=== PATIENT | female | born 1995 | race Caucasian/White ===

== ENCOUNTER 2016-05-23 15:32 | Emergency (ER) | payer OTHER ==
--- NOTE | 2016-05-23 15:56 | ED.PDOC ---
History of Present Illness - General Chief Complaint: Upper Extremity Injury Stated Complaint: Right elbow pain Time Seen by Provider: 05/23/16 15:41 Source: patient, RN notes reviewed, Vital Signs reviewed Exam Limitations: no limitations - History of Present Illness Initial Comments: Patient reports she was horsing around with her and hyperextended her right elbow. She heard/felt a pop and now the inner aspect of her elbow and forearm are painful. Reports numbness in her fingers,all. Occurred: just prior to arrival Pain - Upper Extremity: moderate: Elbow, right Method of Injury: other - hyperextended Improving Factors: immobilization Worsening Factors: movement Allergies/Adverse Reactions: Allergies NO KNOWN ALLERGY Allergy (Unverified 11/02/12 02:29) Home Medications: Ambulatory Orders Cyclobenzaprine HCl [Flexeril] 10 mg PO TID 08/24/15 Review of Systems - Review of Systems Constitutional: States: no symptoms reported EENTM: States: no symptoms reported Respiratory: States: no symptoms reported Cardiology: States: no symptoms reported Gastrointestinal/Abdominal: States: no symptoms reported Musculoskeletal: States: see HPI, joint pain - right elbow Skin: States: no symptoms reported Neurological: States: numbness, paresthesia. Denies: tingling, weakness Endocrine: States: no symptoms reported Past Medical History (General) - Patient Medical History Hx Cardiac Disorders: Yes - tachycardia, heart murmur Hx Diabetes: No Hx Renal Disease: No Hx MRSA: Yes - Finger 2012 MRSA Source:: Wound Surgical History: cholecystectomy - Vaccination History Hx Tetanus, Diphtheria Vaccination: No Hx Influenza Vaccination: No Hx Pneumococcal Vaccination: No - Social History Hx Tobacco Use: Yes Hx Chewing Tobacco Use: No Hx Substance Use: No Hx Physical Abuse: No Hx Emotional Abuse: No Hx Suspected Abuse: No - Female History Patient is a Female of Child Bearing Age (10 -59 yrs old): Yes Hx Last Menstrual Period: 04/04/13 Patient : - unknown-had 4 positive tests at home today Expected Date of Delivery:: 01/20/14 Family Medical History - Family History Mother Name: Bella Spence Living Status: Age at (years of age): 43 Cause of : Lupus Father Age (years): 42 Living Status: Still Living Physical Exam - Physical Exam General Appearance: Alert, Comfortable, No apparent distress, Well Developed, Well Groomed, Well Hydrated, Well Nourished Cardiovascular/Respiratory: normal peripheral pulses Shoulder Exam: normal inspection, non-tender, no evidence of injury, normal ROM Elbow/Forearm Exam: bone tenderness - Right inner aspect, limited ROM - due to pain, pain, soft tissue tenderness - right elbow Wrist Exam: normal inspection, non-tender, no evidence of injury, normal ROM Hand Exam: normal inspection, non-tender, no evidence of injury, normal ROM Neuro/Tendon: normal motor functions, normal tendon functions, sensory deficit - Reports all her fingers are numb to light touch Mental Status: alert, oriented x 3 Skin Exam: normal color, warm/dry Progress - EKG/XRAY/CT XRAY: elbow - Normal Departure - Departure Clinical Impression: Sprain elbow/forearm Qualifiers: Encounter type: initial encounter Laterality: right Qualifier Code: (S53.401A) Unspecified sprain of right elbow, initial encounter Time of Disposition: 16:24 Disposition: Discharge to Home or Self Care Condition: Good Departure Forms: ED Discharge - Pt. Copy, Patient Portal Self Enrollment Diet: resume usual diet Activity: increase activity as tolerated Home Medications: Ambulatory Orders Cyclobenzaprine HCl [Flexeril] 10 mg PO TID 08/24/15 Additional Instructions: Wear sling for 3-5 days OTC Ibuprofen
[2016-05-23 16:10] VITALS: BP 116/74; TEMP 98.9
--- NOTE | 2016-05-23 16:14 | RAD ---
EXAM: Elbow,Right 3 Views CLINICAL INDICATION: 20-year-old female, hyperextended, heard a pop and now painful. TECHNIQUE: Three views of the RIGHT elbow were obtained in AP, lateral and oblique projections. COMPARISON: None. FINDINGS: There is no fracture or dislocation. The joint spaces are preserved. No soft tissue abnormalities are seen. IMPRESSION: No acute radiographic abnormality. Electronically signed by: Mckenzie Mercado MD 05/23/2016 4:13 PM CDT
[2016-05-23 16:51] VITALS: O2SAT 98
== END 2016-05-23 16:40 | disposition home or self-care (01) ==
LOC: ER 15:32
DX: S53.401A Unspecified sprain of right elbow, initial encounter (principal); R01.1 Cardiac murmur, unspecified; Z86.14 Personal history of Methicillin resistant Staphylococcus aureus infection; Z87.891 Personal history of nicotine dependence; Y93.83 Activity, rough housing and horseplay

== ENCOUNTER 2019-08-19 16:32 | Emergency (ER) | payer SELFPAY ==
[2019-08-19 16:55] VITALS: BP 110/72; TEMP 100.1; O2SAT 99
--- NOTE | 2019-08-19 17:08 | RAD ---
EXAM DESCRIPTION: Ankle,Left 2 Views (accession [id number]), Foot,Left 2 Views (accession [id number]), Tibia/Fibula,Left (accession [id number]) CLINICAL HISTORY: 24 years Female, lateral pain after fall yeterday COMPARISON: None. FINDINGS: Left ankle 2 views, left foot 2 views and left tibia-fibula 2 views No fracture or dislocation. Soft tissues are unremarkable. IMPRESSION: No acute abnormality. Electronically signed by: Luciano Savage MD 08/19/2019 5:07 PM CDT
--- NOTE | 2019-08-19 17:09 | RAD ---
EXAM DESCRIPTION: Ankle,Left 2 Views (accession [id number]), Foot,Left 2 Views (accession [id number]), Tibia/Fibula,Left (accession [id number]) CLINICAL HISTORY: 24 years Female, lateral pain after fall yeterday COMPARISON: None. FINDINGS: Left ankle 2 views, left foot 2 views and left tibia-fibula 2 views No fracture or dislocation. Soft tissues are unremarkable. IMPRESSION: No acute abnormality. Electronically signed by: Luciano Savage MD 08/19/2019 5:07 PM CDT
--- NOTE | 2019-08-19 17:09 | RAD ---
EXAM DESCRIPTION: Ankle,Left 2 Views (accession [id number]), Foot,Left 2 Views (accession [id number]), Tibia/Fibula,Left (accession [id number]) CLINICAL HISTORY: 24 years Female, lateral pain after fall yeterday COMPARISON: None. FINDINGS: Left ankle 2 views, left foot 2 views and left tibia-fibula 2 views No fracture or dislocation. Soft tissues are unremarkable. IMPRESSION: No acute abnormality. Electronically signed by: Luciano Savage MD 08/19/2019 5:07 PM CDT
--- NOTE | 2019-08-19 17:16 | ED.PDOC ---
History of Present Illness - General Chief Complaint: Lower Extremity Injury Stated Complaint: left ankle injury Time Seen by Provider: 08/19/19 16:44 Source: patient Exam Limitations: no limitations - History of Present Illness Initial Comments: The patient is a 24-year-old female presented emergency room secondary to [place] The patient has been ambulatory on it since. Pain is along the lateral aspect extending up to the lateral aspect of the knee down to the lateral aspect of the foot. No swelling. No deformity. No sensory changes. No loss of function. No deformity. No other injuries. No laceration. Timing/Duration: 24 hours Severity: moderate Improving Factors: immobilization Worsening Factors: movement Associated Symptoms: denies symptoms Allergies/Adverse Reactions: Allergies Codeine Allergy (Verified 08/19/19 16:48) Home Medications: Ambulatory Orders Cyclobenzaprine HCl [Flexeril] 10 mg PO TID 08/24/15 Review of Systems - Review of Systems Constitutional: States: no symptoms reported EENTM: States: no symptoms reported Respiratory: States: no symptoms reported Cardiology: Denies: no symptoms reported Gastrointestinal/Abdominal: States: no symptoms reported Genitourinary: States: no symptoms reported Musculoskeletal: States: see HPI Skin: States: no symptoms reported Neurological: States: no symptoms reported Endocrine: States: no symptoms reported All other Systems: No Change from Baseline Past Medical History (General) - Patient Medical History Hx Seizures: No Hx Asthma: No Hx of COPD: No Hx Cardiac Disorders: Yes - tachycardia, heart murmur Hx Congestive Heart Failure: No Hx Pacemaker: No Hx Hypertension: No Hx Diabetes: No Hx Gastroesophageal Reflux: No Hx Renal Disease: No Hx Cancer: No Hx Hepatitis C: No Hx MRSA: Yes - Finger 2012 MRSA Source:: Wound Surgical History: cholecystectomy - Vaccination History Hx Tetanus, Diphtheria Vaccination: No Hx Influenza Vaccination: No Hx Pneumococcal Vaccination: No - Social History Hx Tobacco Use: Yes Hx Chewing Tobacco Use: No Hx Alcohol Use: Yes Hx Substance Use: No Hx Physical Abuse: No Hx Emotional Abuse: No Hx Suspected Abuse: No - Female History Hx Last Menstrual Period: 04/04/13 Patient : - unknown-had 4 positive tests at home today Expected Date of Delivery:: 01/20/14 Family Medical History - Family History Mother Name: Bella Spence Living Status: Age at (years of age): 43 Cause of : Lupus Father Family History: Unknown Age (years): 42 Living Status: Still Living Physical Exam - Physical Exam General Appearance: Alert, Comfortable, No apparent distress Eye Exam: bilateral normal Ears, Nose, Throat: hearing grossly normal, normal pharynx Neck: full range of motion, supple Respiratory: no respiratory distress, no accessory muscle use Cardiovascular/Chest: normal peripheral pulses, no edema, other - Mild sinus tachycardia Peripheral Pulses: radial,right: 2+, radial,left: 2+ Gastrointestinal/Abdominal: non tender, soft Rectal Exam: deferred Back Exam: no CVA tenderness, no vertebral tenderness Extremity: normal range of motion, non-tender, normal inspection, no pedal edema, normal capillary refill 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 X-rays of these areas show no evidence of any fracture or dislocation. This appears to be a sprain. The patient is to ambulate carefully prevent falls. She can use [id number] anti-inflammatories to help reduce inflammation and pain. ER warnings are given. Keep routine follow-up with primary care doctor. janneth rahman [phone] - EKG/XRAY/CT CT Ordered: No Departure - Departure Clinical Impression: Left ankle sprain Qualifiers: Encounter type: initial encounter Involved ligament of ankle: unspecified ligament Qualified Code(s): S93.402A - Sprain of unspecified ligament of left ankle, initial encounter Disposition: Discharge to Home or Self Care Condition: Fair Departure Forms: ED Discharge - Pt. Copy, Patient Portal Self Enrollment Instructions: Foot Sprain (DC), Ankle Sprain (DC) Diet: regular diet Activity: increase activity as tolerated Referrals: VICKY ARREGUINSTEPHANIE [Primary Care Provider] - 1-2 Weeks Home Medications: Ambulatory Orders Cyclobenzaprine HCl [Flexeril] 10 mg PO TID 08/24/15 Additional Instructions: The patient is a 24-year-old female presented emergency room secondary to left lower leg, ankle and foot pain after twisting yesterday. X-rays of these areas show no evidence of any fracture or dislocation. This appears to be a sprain. No evidence of obvious instability of the joints. The patient is to ambulate carefully prevent falls. She can use [id number] anti- inflammatories to help reduce inflammation and pain. ER warnings are given. Keep routine follow-up with primary care doctor.
== END 2019-08-19 17:25 | disposition home or self-care (01) ==
LOC: ER 16:32
DX: S93.402A Sprain of unspecified ligament of left ankle, initial encounter (principal); F17.200 Nicotine dependence, unspecified, uncomplicated; X50.1XXA Overexertion from prolonged static or awkward postures, initial encounter; Y92.828 Other wilderness area as the place of occurrence of the external cause

== ENCOUNTER 2019-12-04 16:11 | Emergency (ER) | payer SELFPAY ==
[2019-12-04] MEDS ORDERED: LIDOCAINE 1% 10 ML VIAL INJ ONE (16:36)
--- NOTE | 2019-12-04 16:54 | ED.PDOC ---
History of Present Illness - General Chief Complaint: Laceration Stated Complaint: laceration to bottom of left foot Time Seen by Provider: 12/04/19 16:36 Source: patient Exam Limitations: no limitations Additional Information: Pt says she placed a casserole dish on top of her freezer and didn't know it was hanging off the edge. The dish fell and hit her left foot, causing a laceration. Pt able to ambulate without difficulty. Pt says she pulled out a small piece of glass and is concerned there is still a piece of glass there. Tetanus is UTD. - History of Present Illness Timing/Duration: just prior to arrival Severity: mild Location: feet - left foot Improving Factors: immobilization Worsening Factors: movement Associated Symptoms: denies symptoms Allergies/Adverse Reactions: Allergies Codeine Allergy (Verified 08/19/19 16:48) Home Medications: Ambulatory Orders Cyclobenzaprine HCl [Flexeril] 10 mg PO TID 08/24/15 Meloxicam [Mobic] 15 mg PO DAILY 12/04/19 Review of Systems - Review of Systems Constitutional: States: no symptoms reported Skin: States: other - left foot lac. Denies: change in color Neurological: Denies: numbness, paresthesia, tingling, weakness Past Medical History (General) - Patient Medical History Hx Seizures: No Hx Stroke: No Hx Asthma: No Hx of COPD: No Hx Cardiac Disorders: Yes - tachycardia, heart murmur Hx Congestive Heart Failure: No Hx Pacemaker: No Hx Hypertension: No Hx Diabetes: No Hx Gastroesophageal Reflux: No Hx Renal Disease: No Hx Cancer: No Hx Hepatitis C: No Hx MRSA: Yes - Finger 2011 MRSA Source:: Wound Surgical History: cholecystectomy - Vaccination History Hx Tetanus, Diphtheria Vaccination: - unknown Hx Influenza Vaccination: No Hx Pneumococcal Vaccination: No - Social History Hx Tobacco Use: Yes Hx Chewing Tobacco Use: No Hx Alcohol Use: Yes Hx Substance Use: No Hx Physical Abuse: No Hx Emotional Abuse: No Hx Suspected Abuse: No - Female History Patient is a Female of Child Bearing Age (10 -59 yrs old): Yes Hx Last Menstrual Period: 04/04/13 Patient : - unknown-had 4 positive tests at home today Expected Date of Delivery:: 01/20/14 Family Medical History - Family History Mother Name: Bella Spence Living Status: Age at (years of age): 43 Cause of : Lupus Father Family History: Unknown Age (years): 42 Living Status: Still Living Physical Exam - Physical Exam General Appearance: Alert, No apparent distress Neck: full range of motion Cardiovascular/Chest: normal peripheral pulses Respiratory: no respiratory distress, no accessory muscle use Extremity: normal range of motion, other - 2 cm laceration left medial foot. Wound explored. No clear FB. Progress - EKG/XRAY/CT XRAY: Left foot xray without fracture or FB Procedures - Laceration/Wound Repair Left Lower Foot Wound's Depth, Shape: superficial Wound Explored: clean Irrigated w/ Saline (cc's): 100 Betadine Prep?: No Anesthesia: 1% Lidocaine Volume Anesthetic (cc's): 5 Wound Repaired With: sutures Suture Size/Type: 4:0, prolene Number of Sutures: 4 Layer Closure?: No Sterile Dressing Applied?: Yes Splint Applied?: No Departure - Departure Clinical Impression: Laceration Time of Disposition: 16:54 Disposition: Discharge to Home or Self Care Condition: Excellent Departure Forms: ED Discharge - Pt. Copy, Patient Portal Self Enrollment Instructions: DI for Laceration Repair, Laceration Repair With Stitches (DC) Diet: resume usual diet Activity: increase activity as tolerated Referrals: VICKY LAYOUT WORKER,STEPHANIE Montiel [Primary Care Provider] - 1-2 Weeks Home Medications: Ambulatory Orders Cyclobenzaprine HCl [Flexeril] 10 mg PO TID 08/24/15 Meloxicam [Mobic] 15 mg PO DAILY 12/04/19 Additional Instructions: Suture removal in 7 days
--- NOTE | 2019-12-04 17:00 | RAD ---
EXAM DESCRIPTION: Foot,Left 2 Views CLINICAL HISTORY: Lac; concern for FB COMPARISON: 19 August 2019 TECHNIQUE: Lateral view of the left foot FINDINGS: I see no bone joint or soft tissue abnormality. IMPRESSION: Normal lateral view of the left foot. No foreign body is evident. Electronically signed by: Evan Orozco MD 12/04/2019 4:59 PM CDT
[2019-12-04 18:03] VITALS: BP 110/73; TEMP 98.4; O2SAT 97
== END 2019-12-04 17:13 | disposition home or self-care (01) ==
LOC: ER 16:11
DX: S91.312A Laceration without foreign body, left foot, initial encounter (principal); R01.1 Cardiac murmur, unspecified; Z87.891 Personal history of nicotine dependence; Z88.5 Allergy status to narcotic agent; W20.8XXA Other cause of strike by thrown, projected or falling object, initial encounter; Y93.89 Activity, other specified; Y92.9 Unspecified place or not applicable